=== PATIENT | female | born 1980 | race Caucasian/White ===

== ENCOUNTER 2018-10-20 19:09 | Emergency (ER) | payer MEDICAID ==
[~2018-10-20] VITALS: Ht 165.1 cm; Wt 61.8 kg
[~2018-10-20 19:09] MED LIST: IBUP-1542 PO; LABE100T39 PO; LABE200T25 PO
[2018-10-20 19:14] VITALS: BP 155/81; RESP 19; Ht 165.1 cm; Wt 61.8 kg
[2018-10-20] MEDS ORDERED: AZIT250T PO (21:43)
[2018-10-20] MEDS ORDERED: BENZ200C68 PO (21:43)
[2018-10-20 22:11] VITALS: PULSE 115
--- NOTE | 2018-10-21 01:20 | ERD ---
ER Documentation Chief Complaint Chief Complaint COUGH X8DAYS HPI 38-year-old female with no significant past medical history presenting to the emergency department complaining of productive cough for the past 8 days. Symptoms are worse at night and intermittent. She took Mucinex at home with some relief. She denies any fevers, chills, or other symptoms at this time. ROS All systems reviewed and are negative except as per history of present illness. Medications Home Meds Active Scripts Benzonatate* (Benzonatate*) 200 Mg Capsule, 200 MG PO TID PRN for COUGH, #15 CAP Prov:BALDO LOERA PA-C 10/20/18 Azithromycin* (Zithromax*) 250 Mg Tablet, 250 MG PO .ZPACK DIRECTED, #6 TAB TAKE 500 MG (2 TABS) THE FIRST DAY THEN 250 MG (1 TAB) DAYS 2-5 Prov:BALDO LOERA PA-C 10/20/18 Labetalol Hcl (Labetalol Hcl) 100 Mg Tab, 100 MG PO BID, #100 TAB 1 Refill Prov:SHANIA CROCKETT MD 04/08/15 Ibuprofen* (Motrin*) 600 Mg Tab, 600 MG PO Q6, #20 TAB 0 Refills Prov:SHANIA CROCKETT MD 04/08/15 Reported Medications Labetalol Hcl* (Labetalol Hcl*) 200 Mg Tablet, 200 MG PO BID, TAB 03/22/15 Allergies Allergies: Coded Allergies: No Known Drug Allergies (Verified Allergy, Unknown, 03/10/15) No Known Drug Allergy (Unverified Allergy, Unknown, 03/25/15) PMhx/Soc Medical and Surgical Hx: pt denies Medical Hx History of Surgery: No Anesthesia Reaction: No Hx Neurological Disorder: No Hx Respiratory Disorders: No Hx Cardiac Disorders: No Hx Psychiatric Problems: No Hx Miscellaneous Medical Probl: No Hx Alcohol Use: No Hx Substance Use: No Hx Tobacco Use: No Smoking Status: Never smoker FmHx Family History: No diabetes Physical Exam Vitals Vital Signs Date Temp Pulse Resp B/P (MAP) Pulse Ox O2 O2 Flow FiO2 Time Delivery Rate 10/20/18 115 22:11 10/20/18 98.4 128 19 155/81 99 19:14 (105) Physical Exam Const: No acute distress Head: Atraumatic Eyes: Normal Conjunctiva ENT: Normal External Ears, Nose and Mouth. Neck: Full range of motion. No meningismus. Resp: Clear to auscultation bilaterally Cardio: Regular rate and rhythm, no murmurs Skin: No petechiae or rashes Ext: No cyanosis, or edema Neur: Awake and alert Psych: Normal Mood and Affect Procedures/MDM 38-year-old female presenting to the emergency department with signs and symptoms most consistent with acute bronchitis. Patient is found to be tachycardic in the department which improved prior to discharge. When asked, the patient states she becomes very anxious in a medical setting this is likely causing her tachycardia. Low suspicion for pneumonia, sepsis, meningitis, or other emergencies. Patient is stable and appropriate for discharge and further treatment as an outpatient with prescriptions. She agreed with the diagnosis, plan, need for follow-up, return precautions. Departure Diagnosis: Primary Impression: Acute bronchitis Bronchitis organism: unspecified organism Qualified Codes: J20.9 - Acute bronchitis, unspecified Condition: Fair Patient Instructions: Bronchitis, Antiobiotic Treatment (Adult) [facility]errals[facility] Usted se huddleston hecho un examen mdico de control que le indica que no est en arcadio condicin que requiera tratamiento urgente en el Departamento de Emergencia. Un estudio ms profundo y el tratamiento de [place] condicin pueden esperar sin ningn riesgo hasta que usted sea atendida/o en el consultorio de [place] mdico o arcadio clnica. Es responsabilidad suya arreglar arcadio heaven para el seguimiento del claribel. MANEJO DE CONDICIONES NO URGENTES EN EL FUTURO 1) Si usted tiene un mdico de atencin primaria: Usted debera llamar a [place] mdico de atencin primaria antes de venir al departamento de emergencia. Despus de las horas de consultorio, [place] doctor o [place] asociado/a est disponible por telfono. El mdico o enfermero de garcía en el servicio telefnico puede asesorarle por jacob medio para atender el problema, o claribel contrario se puede programar arcadio heaven. 2) Si usted no tiene un mdico de atencin primaria: Llame al mdico o clnica de referencia que aparece abajo juan las horas de consultorio para hacer arcadio heaven para que le vean. CLINICAS: [facility] [phone] [facility] [phone] [facility] [phone] [place] [phone] [place] [phone] [facility] [phone] [address] Additional Instructions: Llame al doctor MAANA y jered arcadio HEAVEN PARA DENTRO DE 1-2 GLODSMITH.Dgale a la secretaria que nosotros le instruimos hacer esta heaven.Avise o llame si [place] condicin se empeora antes de la heaven. Regresa aqui si peor o no mejor. BALDO LOERA PA-C Oct 21, 2018 01:20
== END 2018-10-20 22:09 | disposition home or self-care (01) ==
LOC: FTE 19:09
DX: J20.9 Acute bronchitis, unspecified (principal)
CPT/HCPCS: 99283

== ENCOUNTER 2019-02-04 13:45 | Emergency (ER) | payer MEDICAID ==
[~2019-02-04] VITALS: Ht 162.6 cm; Wt 59.5 kg
[~2019-02-04 13:45] MED LIST changes: +AZIT250T PO; +BENZ200C68 PO
[2019-02-04 14:32] VITALS: Ht 162.6 cm; Wt 59.5 kg
--- NOTE | 2019-02-04 14:38 | EN ---
Date/Time of Note Date/Time of Note DATE: 02/04/19 TIME: 14:36 ER Progress Note Quick RME note: Medical screening exam was initiated and lab/imaging studies were ordered. Patient will be seen in ED 2 by another provider. HPI: Patient is a 38-year-old female, approximate 6 weeks , G8, P5, A2, presents to the ER for concerns of throat pain x4 to 5 days. Patient reports intermittent fevers. She denies fever today. Patient also states she has a cough. Patient denies any shortness of breath. Patient states her last menstrual was 19. Patient denies any vaginal bleeding or pelvic pain. Physical exam: GENERAL: Well-developed, well-nourished female. Appears in no acute distress. HEAD: Normocephalic, atraumatic. EYES: Pupils are equally reactive bilaterally. EOMs grossly intact. No conjunctival erythema. ENT: Moist mucous membranes. Oropharynx is erythematous, no exudates noted. No uvula deviation. No kissing tonsils. No drooling. No trismus. NECK: Supple. No meningismus. Normal range of motion of the neck. LUNG: Clear to auscultation bilaterally. No rhonchi, wheezing, rales or coarse breath sounds. HEART: Tachycardic. No murmurs, rubs or gallops. EXTREMITIES: Equal pulses bilaterally. No peripheral clubbing, cyanosis or edema. No unilateral leg swelling. NEUROLOGIC: Alert and oriented. Moving all four extremities without any difficulty. Normal speech. Steady gait. SKIN: Normal color. Warm and dry. No rashes or lesions. Orders placed: EKG HIEN MARTINEZ PA-C February 04, 2019 14:38
--- NOTE | 2019-02-04 15:25 | ERD ---
ER Documentation Chief Complaint Chief Complaint c/o sore throat x6 days with on and off fever HPI Patient is a 38-year-old female, approximate 6 weeks , G8, P5, A2, presents to the ER for concerns of throat pain x4 to 5 days. Patient reports intermittent fevers. She denies fever today. Patient also states she has a cough. Patient denies any shortness of breath, wheezing, hemoptysis, dyspnea, chest pain. Denies drooling, trismus, difficulty swallowing. Patient states her last menstrual was 4. Patient denies any vaginal bleeding or pelvic pain. ROS All systems reviewed and are negative except as per history of present illness. Medications Home Meds Active Scripts Nitrofurantoin Monohyd Macrocr* (Macrobid*) 100 Mg Capsr, 100 MG PO BID for UTI for 7 Days, CAP Prov:BALDO PERSAUD 02/04/19 Benzonatate* (Benzonatate*) 200 Mg Capsule, 200 MG PO TID PRN for COUGH, #15 CAP Prov:BALDO LOERA PA-C 10/20/18 Azithromycin* (Zithromax*) 250 Mg Tablet, 250 MG PO .ZPACK DIRECTED, #6 TAB TAKE 500 MG (2 TABS) THE FIRST DAY THEN 250 MG (1 TAB) DAYS 2-5 Prov:BALDO LOERA PA-C 10/20/18 Labetalol Hcl (Labetalol Hcl) 100 Mg Tab, 100 MG PO BID, #100 TAB 1 Refill Prov:SHANIA CROCKETT MD 04/08/15 Ibuprofen* (Motrin*) 600 Mg Tab, 600 MG PO Q6, #20 TAB 0 Refills Prov:SHANIA CROCKETT MD 04/08/15 Reported Medications Labetalol Hcl* (Labetalol Hcl*) 200 Mg Tablet, 200 MG PO BID, TAB 03/22/15 Allergies Allergies: Coded Allergies: No Known Drug Allergies (Verified Allergy, Unknown, 03/10/15) No Known Drug Allergy (Unverified Allergy, Unknown, 03/25/15) PMhx/Soc History of Surgery: No Anesthesia Reaction: No Hx Neurological Disorder: No Hx Respiratory Disorders: No Hx Cardiac Disorders: No Hx Psychiatric Problems: No Hx Miscellaneous Medical Probl: No Hx Alcohol Use: No Hx Substance Use: No Hx Tobacco Use: No Smoking Status: Never smoker FmHx Family History: No diabetes, No coronary disease, No other Physical Exam Vitals Vital Signs Date Temp Pulse Resp B/P (MAP) Pulse Ox O2 O2 Flow FiO2 Time Delivery Rate 02/04/19 104 20 128/79 98 Room Air 19:31 (95) 02/04/19 99.6 19:03 02/04/19 99.0 18:19 02/04/19 99.7 140 20 138/90 100 14:32 (106) Physical Exam Const: No acute distress Head: Atraumatic Eyes: Normal Conjunctiva ENT: Normal External Ears, Nose and Mouth. Tonsils nonedematous erythematous bilaterally with no exudates. Uvula is midline. There are no peritonsillar masses noted. No drooling or trismus noted. Neck: Full range of motion. No meningismus. Resp: Clear to auscultation bilaterally Cardio: Regular rate and rhythm, no murmurs Abd: Soft, non tender, non distended. Normal bowel sounds Skin: No petechiae or rashes Back: No midline or flank tenderness Ext: No cyanosis, or edema Neur: Awake and alert Psych: Normal Mood and Affect Result Diagram: 02/04/19 1526 02/04/19 1526 Results 24 hrs Laboratory Tests Test 02/04/19 15:26 02/04/19 19:16 White Blood Count 10.2 10^3/ul Red Blood Count 4.39 10^6/ul Hemoglobin 13.5 g/dl Hematocrit 40.0 % Mean Corpuscular Volume 91.1 fl Mean Corpuscular Hemoglobin 30.8 pg Mean Corpuscular Hemoglobin Concent 33.8 g/dl Red Cell Distribution Width 12.8 % Platelet Count 334 10^3/UL Mean Platelet Volume 9.5 fl Immature Granulocytes % 0.500 % Neutrophils % 60.4 % Lymphocytes % 30.8 % Monocytes % 6.0 % Eosinophils % 1.5 % Basophils % 0.8 % Nucleated Red Blood Cells % 0.0 /100WBC Immature Granulocytes # 0.050 10^3/ul Neutrophils # 6.2 10^3/ul Lymphocytes # 3.1 10^3/ul Monocytes # 0.6 10^3/ul Eosinophils # 0.2 10^3/ul Basophils # 0.1 10^3/ul Nucleated Red Blood Cells # 0.0 10^3/ul Sodium Level 137 mmol/L Potassium Level 4.0 mmol/L Chloride Level 103 mmol/L Carbon Dioxide Level 24 mmol/L Anion Gap 10 Blood Urea Nitrogen 12 mg/dl Creatinine 0.60 mg/dl Est Glomerular Filtrat Rate mL/min > 60 mL/min Glucose Level 116 mg/dl Calcium Level 9.7 mg/dl Total Bilirubin 0.3 mg/dl Direct Bilirubin 0.00 mg/dl Indirect Bilirubin 0.3 mg/dl Aspartate Amino Transf (AST/SGOT) 24 IU/L Alanine Aminotransferase (ALT/SGPT) 29 IU/L Alkaline Phosphatase 64 IU/L Total Protein 8.9 g/dl Albumin 4.6 g/dl Globulin 4.30 g/dl Albumin/Globulin Ratio 1.06 Bedside Urine pH (LAB) 7.0 Bedside Urine Protein (LAB) Negative Bedside Urine Glucose (UA) Negative Bedside Urine Ketones (LAB) Negative Bedside Urine Blood Trace-intact Bedside Urine Nitrite (LAB) Negative Bedside Urine Leukocyte Esterase (L Trace Current Medications Medications Dose Sig/Evans Start Time Status Last (Trade) Ordered Route PRN Stop Time Admin Dose Reason Admin Sodium 1,000 ml @ Q1H STAT 02/04/19 DC 02/04/19 Chloride 1,000 mls/hr IV 17:04 17:17 02/04/19 18:03 Procedures/MDM EKG: Rate/Rhythm: Normal Sinus Rhythm QRS, ST, T-waves: No changes consistent w/ acute ischemia Impression: No evidence of ischemia or arrhythmia MDM: Patient was afebrile however pulse was at 140 at presentation. Rapid strep was performed and was negative. EKG was also within normal limits. Patient denied any chest pain, shortness of breath, or any other concerning symptoms. I discussed the case with my supervising physician Dr. Briones and she stated to give the patient 1 L of fluids and recheck temperature and see if her pulse rate would go down. Patient's pulse rate went down to 104. Labs were drawn and there is no sign of anemia. In addition patient has no white count. UA showed possible UTI so patient will be treated for UTI given her status. I discussed final vitals and lab results with my supervising physician and she stated the patient would be fit for discharge at this time I low suspicion for symptomatic anemia, arrhythmia, pericarditis, sepsis, pyelonephritis, acute dehydration, acute space infection, or any other emergent condition.. Patient discharged with strict ER precautions. Patient advised to follow up with PMD. All questions answered at discharge. Departure Diagnosis: Primary Impression: Sore throat Additional Impression: Tachycardia Condition: Stable BALDO PERSAUD February 04, 2019 15:25
[2019-02-04] MEDS ORDERED: SOD CHLORIDE 0.9% 1,000 ML IV STA (17:04)
[2019-02-04] MEDS ORDERED: NITR-58 PO ×2 (19:19→19:23)
[2019-02-04 19:31] VITALS: BP 128/79; PULSE 104; RESP 20
== END 2019-02-04 19:33 | disposition home or self-care (01) ==
LOC: FTE 13:45
DX: J02.9 Acute pharyngitis, unspecified (principal); R00.0 Tachycardia, unspecified
CPT/HCPCS: 80053; 81003; 85025; 87086; 87880; 93005; J7030; Z7502

== ENCOUNTER 2019-02-26 01:18 | Emergency (ER) | payer MEDICAID ==
[~2019-02-26] VITALS: Ht 167.6 cm; Wt 60.0 kg
[~2019-02-26 01:18] MED LIST changes: +NITR-58 PO
[2019-02-26 01:21] VITALS: Ht 167.6 cm; Wt 60.0 kg
--- NOTE | 2019-02-26 03:40 | ERD ---
ER Documentation Chief Complaint Chief Complaint abd pain and vag bleed. 9 weeks . HPI 39-year-old G8, P5 female in her ninth week of presents with complaint of abdominal pain and vaginal bleeding since this morning. States her last menstrual period was December 17. Denies any current bleeding but says she notices it when she wipes. Denies any lightheadedness, chest pain, palpitations, flank pain, dysuria, hematuria. States she has an OB. Denies any allergies. Has history of hypertension for which she takes labetalol. ROS All systems reviewed and are negative except as per history of present illness. Medications Home Meds Active Scripts Nitrofurantoin Monohyd Macrocr* (Macrobid*) 100 Mg Capsr, 100 MG PO BID for UTI for 7 Days, CAP Prov:BALDO PERSAUD 02/04/19 Benzonatate* (Benzonatate*) 200 Mg Capsule, 200 MG PO TID PRN for COUGH, #15 CAP Prov:BALDO LOERA PA-C 10/20/18 Azithromycin* (Zithromax*) 250 Mg Tablet, 250 MG PO .ZPACK DIRECTED, #6 TAB TAKE 500 MG (2 TABS) THE FIRST DAY THEN 250 MG (1 TAB) DAYS 2-5 Prov:BALDO LOERA PA-C 10/20/18 Labetalol Hcl (Labetalol Hcl) 100 Mg Tab, 100 MG PO BID, #100 TAB 1 Refill Prov:SHANIA CROCKETT MD 04/08/15 Ibuprofen* (Motrin*) 600 Mg Tab, 600 MG PO Q6, #20 TAB 0 Refills Prov:SHANIA CROCKETT MD 04/08/15 Reported Medications Labetalol Hcl* (Labetalol Hcl*) 200 Mg Tablet, 200 MG PO BID, TAB 03/22/15 Allergies Allergies: Coded Allergies: No Known Drug Allergies (Verified Allergy, Unknown, 03/10/15) No Known Drug Allergy (Unverified Allergy, Unknown, 03/25/15) PMhx/Soc History of Surgery: No Anesthesia Reaction: No Hx Neurological Disorder: No Hx Respiratory Disorders: No Hx Cardiac Disorders: No Hx Psychiatric Problems: No Hx Miscellaneous Medical Probl: No Hx Alcohol Use: No Hx Substance Use: No Hx Tobacco Use: No FmHx Family History: No diabetes, No coronary disease, No other Physical Exam Vitals Vital Signs Date Temp Pulse Resp B/P (MAP) Pulse Ox O2 O2 Flow FiO2 Time Delivery Rate 02/26/19 98.4 105 18 134/81 95 05:29 (98) 02/26/19 97.9 97 16 162/86 97 01:21 (111) Physical Exam Const: No acute distress Head: Atraumatic Eyes: Normal Conjunctiva ENT: Normal External Ears, Nose and Mouth. Neck: Full range of motion. No meningismus. Resp: Clear to auscultation bilaterally Cardio: Regular rate and rhythm, no murmurs Abd: Soft, non tender, non distended. Normal bowel sounds Skin: No petechiae or rashes Back: No midline or flank tenderness Ext: No cyanosis, or edema Neur: Awake and alert Psych: Normal Mood and Affect Result Diagram: 02/26/19 0351 02/26/19 0351 Results 24 hrs Laboratory Tests Test 02/26/19 03:51 White Blood Count 8.6 10^3/ul Red Blood Count 4.16 10^6/ul Hemoglobin 12.6 g/dl Hematocrit 38.2 % Mean Corpuscular Volume 91.8 fl Mean Corpuscular Hemoglobin 30.3 pg Mean Corpuscular Hemoglobin Concent 33.0 g/dl Red Cell Distribution Width 13.6 % Platelet Count 315 10^3/UL Mean Platelet Volume 9.9 fl Immature Granulocytes % 0.200 % Neutrophils % 64.2 % Lymphocytes % 29.2 % Monocytes % 4.8 % Eosinophils % 1.0 % Basophils % 0.6 % Nucleated Red Blood Cells % 0.0 /100WBC Immature Granulocytes # 0.020 10^3/ul Neutrophils # 5.5 10^3/ul Lymphocytes # 2.5 10^3/ul Monocytes # 0.4 10^3/ul Eosinophils # 0.1 10^3/ul Basophils # 0.1 10^3/ul Nucleated Red Blood Cells # 0.0 10^3/ul Urine Color YELLOW Urine Clarity SLIGHTLY CLOUDY Urine pH 5.0 Urine Specific Maidens 1.013 Urine Ketones NEGATIVE mg/dL Urine Nitrite NEGATIVE mg/dL Urine Bilirubin NEGATIVE mg/dL Urine Urobilinogen NEGATIVE mg/dL Urine Leukocyte Esterase NEGATIVE Sergio/ul Urine Microscopic RBC 2 /HPF Urine Microscopic WBC 2 /HPF Urine Squamous Epithelial Cells FEW /HPF Urine Bacteria FEW /HPF Urine Mucus FEW /HPF Urine Hemoglobin 3+ mg/dL Urine Glucose NEGATIVE mg/dL Urine Total Protein NEGATIVE mg/dl Sodium Level 139 mmol/L Potassium Level 4.1 mmol/L Chloride Level 104 mmol/L Carbon Dioxide Level 26 mmol/L Anion Gap 9 Blood Urea Nitrogen 9 mg/dl Creatinine 0.53 mg/dl Est Glomerular Filtrat Rate mL/min > 60 mL/min Glucose Level 118 mg/dl Calcium Level 9.5 mg/dl Total Bilirubin 0.4 mg/dl Direct Bilirubin 0.00 mg/dl Indirect Bilirubin 0.4 mg/dl Aspartate Amino Transf (AST/SGOT) 18 IU/L Alanine Aminotransferase (ALT/SGPT) 19 IU/L Alkaline Phosphatase 51 IU/L Total Protein 8.8 g/dl Albumin 4.5 g/dl Globulin 4.30 g/dl Albumin/Globulin Ratio 1.04 Beta HCG, Quantitative 185940.0 mIU/ml Procedures/MDM DIAGNOSTIC IMAGING REPORT Patient: BERTRAM JALLOH : 1980 Age: 39 Sex: F MR #: [id number] DOS: 02/26/19 0323 Ordering MD: BALDO PERSAUD Location: [facility] Room/Bed: PROCEDURE: US OB < 14 weeks. CLINICAL INDICATION: Bleeding TECHNIQUE: Multiple sonographic images of the pelvis were obtained utilizing transabdominal technique. The images were reviewed on a PACS workstation. COMPARISON: None FINDINGS: There is a single live intrauterine with heart rate 150 beats per minute. There is no evidence of a subchorionic hemorrhage. MSD: 3.99 cm. CRL: 3.78 cm. Bilateral ovaries are not visualized. No free fluid in the pelvis. IMPRESSION: 1. Single live intrauterine gestation of approximately 10 weeks 1 day. Estimated date of delivery 09/23/2019. 2. No evidence of subchorionic hemorrhage.. 3. Ovaries not seen. RPTAT: [facility] Physician Babak Date Time Electronically viewed and signed by Physician Babak on 02/26/2019 04:55 xB/ CC: BALDO PERSAUD [id number] ER Course: CBC, UA, beta quant HCG, type and RH, vaginal US/abdominal US ordered. MDM: CBC, UA, beta quant HCG, type and RH, vaginal US/abdominal US ordered. All results within limits. Ultrasound showed live intrauterine . Becuase heterotopic can not be ruled out patient advised to return in 48 hours for repeat HCG levels and US. At this point I have low suspicion for ruptured ectopic based on results of US, hemodynamic stability, physical exam and patient history. I have low suspicion for septic , pyelonephritis, placenta abrupta, appendicitis, cholecystitis, bowel obstruction, ovarian torsion, symptomatic anema, PID, surgical abdomen, hemorrhage, or other life threatening conditions based on patient history, physical exam, and lab/imaging results. At this time, patient is stable for discharge and outpatient management. I have instructed the patient to follow-up with his/her primary care physician in 1-2 days. I have discussed with the patient the possibility of needing to see a specialist for further workup and imaging studies if symptoms persist. I have instructed the patient to promptly return to the ER for any new or worsening symptoms including but not limited to increased pain, fever, nausea, vomiting, weakness or LOC. The patient and/or family expressed understanding of and agreement with this plan. All questions were answered. Home care instructions were provided. Communication with patient both during the exam and instructions for discharge were performed with using a pathology secretary/transcriptionist . Patient gave verbal confirmation to the practitioner, through the pathology secretary/transcriptionist, that they understood everything that was being said to them. DISCLAIMER: Inadvertent spelling and grammatical errors are likely due to EHR/dictation software use and do not reflect on the overall quality of patient care. Also, please note that the electronic time recorded on this note does not necessarily reflect the actual time of the patient encounter. Departure Diagnosis: Primary Impression: Bleeding in early Additional Impression: Pelvic pain affecting Trimester: first trimester Qualified Codes: O26.891 - Other specified related conditions, first trimester; R10.2 - Pelvic and perineal pain Condition: Stable BALDO PERSAUD Feb 26, 2019 03:40
[2019-02-26 05:29] VITALS: BP 134/81; PULSE 105; RESP 18
== END 2019-02-26 05:29 | disposition home or self-care (01) ==
LOC: FTE 01:18
DX: O20.9 Hemorrhage in early pregnancy, unspecified (principal); O26.891 Other specified pregnancy related conditions, first trimester; R10.2 Pelvic and perineal pain; Z3A.10 10 weeks gestation of pregnancy
CPT/HCPCS: 36415; 76801; 80053; 81001; 84702; 85025; 86900; 86901; Z7502